=== PATIENT | female | born 1990 | race Caucasian/White ===

== ENCOUNTER 2019-02-18 09:59 | Emergency (ER) | payer OTHER ==
[2019-02-18 10:24] VITALS: BP 113/73; PULSE 64; TEMP 97.7; BMI 29.0
--- NOTE | 2019-02-18 10:36 | PDOC ---
History of Present Illness - General Chief Complaint: Back Pain Stated Complaint: BACK PAIN Time Seen by Provider: 02/18/19 10:35 History Source: Patient Exam Limitations: No Limitations - History of Present Illness Initial Comments: 02/18/19 10:58 Ms. Wolf is a 28 y/o woman with no PMH presenting from work with acute low back pain. She reports that for the past five years she has had occasional lower back spasms approx once per week. 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 She rates the pain a 3-4/10, reports that it is localized to her lower R flank, and that it feels similar to prior episodes of back spasms. She reports that normally, she sits still at home for a few minutes until the pain resolves. She denies any fevers, spinal point tenderness , incontinence, confusion, chills, difficulty ambulating, dysuria, hematuria, trauma to the spine, no history of malignancy. Past History - Past Medical History Allergies/Adverse Reactions: Allergies Allergy/AdvReac Type Severity Reaction Status Date / Time No Known Allergies Allergy Verified 02/18/19 10:16 Home Medications: Ambulatory Orders Cyclobenzaprine HCl [Flexeril 10 mg] 10 mg PO BID PRN #10 tablet 02/18/19 COPD: No - Immunization History Immunization Up to Date: Yes - Suicide/Smoking/Psychosocial Hx Smoking History: Never smoked Information on smoking cessation initiated: No Hx Alcohol Use: No Drug/Substance Use Hx: No *Physical Exam - Vital Signs Last Vital Signs Temp Pulse Resp BP Pulse Ox 97.7 F 64 16 113/73 100 02/18/19 10:16 02/18/19 10:16 02/18/19 10:16 02/18/19 10:16 02/18/19 10:16 Medical Decision Making - Medical Decision Making 02/18/19 11:01 28 y/o F with no PMH, no urinary complaints p/w episode of R flank pain, unchanged from prior episodes of back muscle spasm. Kidney stone also possible given location of pain. Plan for UA, urine test then muscle relaxant and pain control. Likely d/c home with PCP follow up. Plan: UA to evaluate hematuria Urine hcg [If hcg negative:] [Flexeril 10mg PO] [Toradol 60mg IM] 02/18/19 12:37 UA returned with 2+ leuk esterase, confirmed with patient urine was not clean catch. She denies any urinary symptoms, no dysuria, hematuria, polyuria, foul smelling urine. Kidney stone unlikely with no hematuria. Urine hcg negative, plan for IM Toradol , PO flexeril and discharge home if symptomatic relief. 02/18/19 13:46 Pain resolved with toradol and flexeril. Plan for discharge home with flexeril as needed for future episodes. *DC/Admit/Observation/Transfer Diagnosis at time of Disposition: Back muscle spasm - Discharge Dispostion Disposition: HOME Condition at time of disposition: Good Decision to Admit order: No - Prescriptions Prescriptions: Cyclobenzaprine HCl [Flexeril 10 mg] 10 mg PO BID PRN #10 tablet PRN Reason: back spasm - Referrals - Patient Instructions Printed Discharge Instructions: DI for Low Back Pain, DI for Back Spasm Additional Instructions: You were evaluated in the Emergency Department for pain in your back. We evaluated your symptoms, conducted a physical exam, and ordered lab tests. Your urine test returned normal, and we gave you medications to help relax the muscle and reduce your pain. We are diagnosing you with a back spasm. Please follow up with your primary care provider at your earliest convenience. We are prescribing you a muscle relaxant, please take it as directed when you have this same muscle spasm. Please return if you develop any fevers, incontinence, difficulty walking, numbness, or other symptoms that become concerning to you. You are safe to drive home from work today. - Post Discharge Activity
--- NOTE | 2019-02-18 11:28 | PDOC ---
Documentation entered by Jono Perez SCRIBE, acting as scribe for Rishabh Colon MD. Rishabh Colon MD: This documentation has been prepared by the leticiaibe, Jono Perez SCRIBE, under my direction and personally reviewed by me in its entirety. I confirm that the documentation accurately reflects all work, treatment, procedures, and medical decision making performed by me. Attending Attestation - Resident Resident Name: [email or web address] - ED Attending Attestation I have performed the following: I have examined & evaluated the patient, The case was reviewed & discussed with the resident, I agree w/resident's findings & plan, Exceptions are as noted - HPI HPI: 02/18/19 11:16 The patient is a 28 year old female with no significant past medical history who presents to the emergency department via EMS with lower right sided back pain. The patient states that she was at when she bent over experienced 3/10 right lower back pain that is worsened with movement. The patient states that her pain is localized from the bottom of her spine to her right flank region without radiation. She endorses some difficulty ambulating but denies any numbness, weakness or tingling sensation. She denies any trauma, fever, chills, nausea vomiting, diarrhea, incontinence, constipation or urinary symptoms. The patient denies any chest pain, shortness of breath, headache or dizziness. She denies any other complaints. denies ivdu LMP was last week - Physicial Exam PE: GENERAL: The patient is awake, alert, and fully oriented, Nontoxic - in no acute distress. HEAD: Normocephalic, atraumatic. EYES: extraocular movements intact, sclera anicteric, conjunctiva clear. ENT: Normal voice, Moist mucous membranes. NECK: Normal range of motion, supple LUNGS: Breath sounds equal, clear to auscultation bilaterally. BACK:L No focal bony ttp on cervica/thoracic/lumbar spine, mild ttp on R lumbar paraspinal region HEART: Regular rate and rhythm, normal S1 and S2 without murmur, rub or gallop. ABDOMEN: Soft, nontender, No guarding, no rebound. No CVA tenderness EXTREMITIES: Normal range of motion, no edema. NEUROLOGICAL: No facial assymetry, Normal speech, moving all 4 extreimties spontaneously and symmetrically PSYCH: Normal mood, normal affect. SKIN: Warm, Dry, normal turgor, - Medical Decision Making 02/18/19 11:02 likely msucle spasm - consider kidney stone will obtain ua to r/o hematuria/ toradol & flexeril will reasess
[2019-02-18 12:25] LABS: EPI CELLS 5.9 /HPF (0-5/HPF); HYALINE CASTS 8 /lpf (0-8); URINE APPEARANCE CLOUDY; URINE BACTERIA 1484.2 /hpf (NEGATIVE); URINE BILIRUBIN NEGATIVE (NEGATIVE); URINE COLOR YELLOW; URINE GLUCOSE (UA) NEGATIVE (NEGATIVE); URINE KETONE NEGATIVE (NEGATIVE); URINE LEUK ESTERASE 2+ (NEGATIVE); URINE NITRITE NEGATIVE (NEGATIVE); URINE PROTEIN NEGATIVE (NEGATIVE); URINE UROBILINOGEN 0.2 mg/dL (0.2-1.0); URINE WBC 27 /hpf (0-5)
[2019-02-18] MEDS ORDERED: KETOROLAC TROMETHAMINE 60 MG/2 ML VIAL IM ONE (12:33)
[2019-02-18] MEDS ORDERED: CYCLOBENZAPRINE HCL 5 MG TABLET PO ONE (12:34)
[2019-02-18 12:41] LABS: URINE RBC 11.1 /hpf (0-4); YEAST NONE SEEN (NEGATIVE)
[2019-02-18] MEDS ORDERED: KETOROLAC TROMETHAMINE 60 MG/2 ML VIAL ONE (13:02)
[2019-02-18] MEDS ORDERED: CYCLOBENZAPRINE HCL 10 MG TABLET (FP) ONE (13:02)
== END 2019-02-18 13:56 | disposition home or self-care (01) ==
LOC: JER 09:59
PROC: 3E0233Z Introduction of Anti-inflammatory into Muscle, Percutaneous Approach (ICD-10-PCS; principal; 2019-02-18)
DX: M62.830 Muscle spasm of back (principal)
CPT/HCPCS: 81003; 84703; 99281-25